=== PATIENT | female | born 1985 | race Caucasian/White ===

== ENCOUNTER → 2021-06-22 09:06 | Outpatient (BNVA) | payer SELFPAY | DX: Z76.89 Persons encountering health services in other specified circumstances (principal) ==

== ENCOUNTER 2024-04-18 17:07 | Emergency (ER) | payer OTHER, SELFPAY ==
--- NOTE | ~2024-04-18 | XR_ITS ---
EXAMINATION: XR TIBIA AND FIBULA, RIGHT CLINICAL INFORMATION: Concern for foreign body retention COMPARISON: None available. TECHNIQUE: AP and lateral views of the right tibia and fibula were obtained. FINDINGS: Alignment at the knee and ankle is anatomic. No acute fracture is seen. No definite radiopaque foreign body, with some dressing material noted along the lateral mid calf partially limiting evaluation. XR/XR tibia fibula RT 2V IMPRESSION: No definite radiopaque foreign body, with dressing material noted along the lateral mid calf.
[2024-04-18 17:25] VITALS: BP 149/86; PULSE 100; RESP 18; TEMP 36.1; O2SAT 98; BMI 27.8
--- NOTE | 2024-04-18 17:33 | ED_ITS ---
HPI - General Adult General Chief complaint: Wound/Laceration Stated complaint: R leg lac Time Seen by Provider: 04/18/24 19:13 Source: patient Mode of arrival: ambulatory Limitations: no limitations History of Present Illness ED Provider: Rachel Monteiro PA-C HPI narrative: 39-year-old female presents for evaluation of a laceration on her right lower extremity. She was renovating her bathroom and noticed her leg was bleeding. She is not exactly sure what she cut it on, possibly a porcelain toilet. She is unsure of her tetanus status. MD complaint: Right leg laceration Onset (ago): hour(s) Location: right and lower extremity Related Data Previous Rx's ?Medication ?Instructions ?Recorded cephalexin 500 mg capsule 500 mg PO Q6H 7 days #28 caps 04/18/24 Allergies Allergy/AdvReac Type Severity Reaction Status Date / Time No Known Allergies Allergy Verified 04/18/24 17:28 Review of Systems 2 Constitutional: Constitutional: Reports no additional constitutional complaints, Denies chills, Denies fever(s) and Denies night sweats Eyes: Eyes: Reports no additional eye complaints, Denies blurry vision, Denies change in vision, Denies diplopia, Denies eye discharge, Denies loss of vision and Denies eye pain ENT: Denies dizziness Cardiovascular: Cardiovascular: Reports no additional cardiovascular complaints, Denies chest pain, Denies lightheadedness, Denies Loss of Consciousness and Denies dyspnea Respiratory: Respiratory: Reports no additional respiratory complaints and Denies dyspnea Gastrointestinal: Gastrointestinal: Reports no additional gastrointestinal complaints, Denies abdominal pain, Denies melena, Denies hematochezia, Denies change in bowel habits and Denies change in stool character Genitourinary: Genitourinary: Denies hematuria, Denies urinary frequency, Denies dysuria, Denies urinary incontinence, Denies urinary hesitancy and Denies urinary urgency Musculoskeletal: Musculoskeletal: Reports no additional musculoskeletal complaints, Denies numbness and Denies tingling Integumentary/Breasts: Skin/Breast: Reports other (laceration on right calf) Neurologic: Denies dizziness, Denies loss of vision, Denies numbness and Denies tingling Psychiatric: Psychiatric: Reports no additional psychiatric complaints Endocrine: Endocrine: Reports no additional endocrine complaints Hematologic/Lymphatic: Hematologic/Lymphatic: Reports no additional hematologic/lymphatic complaints Allergic/Immunologic: Allergic/Immunologic: Reports no additional allergic/immunologic complaints [facility] Past Medical History Attestation statement: The following information was validated with the patient. Source: old records reviewed and nursing notes reviewed Social History Social History Advance Directives: No Advance Directives Information Provided: No Do you have a plan to hurt others: No Plan Physical Exam ED Vital Signs: Vital Signs - 24 hr 04/18/24 17:25 04/18/24 19:19 04/18/24 20:21 Temperature 97.0 F 97.8 F 97.8 F Pulse Rate 100 87 87 Respiratory Rate 18 18 18 Blood Pressure 149/86 H 138/86 138/86 Pulse Oximetry 98 98 98 Oxygen Delivery Method Room Air Room Air Room Air BMI result Body Mass Index 27.8 Const General: cooperative, no acute distress, alert and awake Nutritional Appearance: well nourished Orientation/consciousness: patient oriented x3 Limitations: no limitations HENMT Head: Yes normal to inspection and Yes atraumatic Ears: hearing grossly normal bilaterally and external ears normal General nose exam: Normal external nose present, no nasal discharge noted and no epistaxis Face and sinus: Yes normal facial exam, No abrasion and No laceration Mouth: Normal oral and palatal mucosa present, no drooling and no muffled voice Eyes General: appearance normal, both eyes and all related structures Periorbital: periorbital findings normal Eyelids: Yes eyelids normal Conjunctivae: conjunctivae normal Pupils: Equal, round and reactive pupils present EOM: EOMs intact bilaterally Neck Neck: Yes normal visual inspection, Yes full ROM and Yes no lymphadenopathy Chest Chest palpation & inspection: normal inspection of the chest Resp Effort & Inspection: normal respiratory effort and able to speak in complete sentences GI Inspection: Yes normal to inspection Neuro General: patient oriented x3 and moves all extremities Cranial nerves: Yes Equal, round and reactive pupils present Cognition (Neuro): normal cognition Motor exam (neuro): 5/5 motor strength present throughout Sensory Exam: Normal double simultaneous stimulation for sensation Coordination: [id number] test normal Extrem General: Yes full ROM and Yes capillary refill normal Right lower extremity: lower leg Details: laceration (Right calf, linear, 2.5 cm) Upper/lower leg/hip images: 2 1. 2.5cm laceration, no active bleeding Psych Appearance: grossly normal Mental Status: mental status grossly normal Affect: normal affect Attitude: cooperative Thought process: Normal thought process present Thought content: Normal thought content present Insight: Good insight present (Psych) Course Course Course Narrative: RME: RME done by ARMINDA Rueda. Patient presents for Right leg laceration caused by tile while re-doing the bathroom. Superficial laceration may need one stitch. no tenderness on palpation. Medications Administered Discontinued Medications Generic Name Dose Route Start Last Admin Trade Name Freq PRN Reason Stop Dose Admin Diphtheria/Tetanus/Acell Pertussis 0.5 ml 04/18/24 17:29 04/18/24 20:01 Diphth,Pertus(Acell),Tet Adult 0.5 Ml Syringe IM 04/18/24 17:30 0.5 ml .ONCE ONE Administration Lidocaine HCl 5 ml 04/18/24 19:21 04/18/24 20:01 Lidocaine Hcl 1 % Mpf 5 Ml Vial INFILTRATI 04/18/24 19:22 Not Given ONCE ONE Lidocaine HCl 5 ml 04/18/24 19:21 04/18/24 20:01 Lidocaine Hcl 1 % Mpf 5 Ml Vial INFILTRATI 04/18/24 19:22 Not Given ONCE ONE Lidocaine HCl 5 ml 04/18/24 19:28 04/18/24 20:01 Lidocaine Hcl 1 % Mpf 5 Ml Vial SUBCUT 04/18/24 19:29 5 ml ONCE ONE Administration Procedures Laceration Laceration 1: Site: lower extremity (RLE) Side (If applicable): right Size (cm): 2.5 Description: linear Depth: simple, single layer Local Anesthetic: lidocaine 1% Amount of anesthesia used (mL): 0.5 Pre-repair: irrigated extensively and deep structures intact Skin layer closed with: other (prolene) Size (cm): 6-0 Number of sutures: 3 Technique: simple, interrupted Medical Decision Making Medical Decision Making MDM Narrative: Patient is a 39 year old assigned female at with no reported medical history presenting to the emergency department today with a right lower leg laceration. Patient's physical exam was as noted in the physical exam portion of this note. Patient's right lower leg x-ray showed no acute process. I explained my physical exam findings as well as all test results to the patient. I answered all questions asked by the patient. Patient's laceration was repaired without incident, per procedure note. Patient's PMS was intact prior to and after sutures. I stressed the importance of the patient taking her medication as prescribed. I stressed the importance of the patient following up with her primary care provider. I stressed the importance of the patient returning to the emergency department immediately if her symptoms were to worsen or if she were to develop any dizziness, shortness of breath, difficulty breathing, chest pain, blurry vision, loss of vision, nausea, vomiting, abdominal pain, fever, chills, back pain, or any other complaints. Patient verbalized agreement and understanding with this treatment plan and discharge. Differential Diagnosis Differential Diagnoses: The differential diagnosis associated with the presentation includes Laceration Foreign body Abrasion Admission/Observation Consideration of admission/observation: Escalation of care including admission/observation considered Laceration Independent Interpretation I performed an independent interpretation of an: Plain X-Ray Interpretation: My interpretation is in agreement with the radiologist's impression of this imaging study. - EXAMINATION: XR TIBIA AND FIBULA, RIGHT CLINICAL INFORMATION: Concern for foreign body retention COMPARISON: None available. TECHNIQUE: AP and lateral views of the right tibia and fibula were obtained. FINDINGS: Alignment at the knee and ankle is anatomic. No acute fracture is seen. No definite radiopaque foreign body, with some dressing material noted along the lateral mid calf partially limiting evaluation. XR/XR tibia fibula RT 2V IMPRESSION: No definite radiopaque foreign body, with dressing material noted along the lateral mid calf. Dictated By: Melvin Blue MD Signed By: Electronically signed by Melvin Blue MD 04/18/242034 Radiology Impression Discussion of test interpretation with radiology: I have reviewed the radiologist's reading. Prescription Management I considered prescription management with: Antibiotic (patient prescribed a prophylactic antibiotic secondary to mechanism of injury ) Discharge Plan Discharge Clinical Impression: Laceration Patient Disposition: Home, Self-Care Instructions: Care For Your Stitches (DC) Additional Instructions: Have your sutures removed in 7-10 days. Do NOT soak the affected area. Follow up with your primary care provider. Return to the emergency department immediately if your symptoms worsen or if you develop any dizziness, shortness of breath, difficulty breathing, chest pain, blurry vision, loss of vision, nausea, vomiting, abdominal pain, fever, chills, back pain, or any other complaints. Prescriptions: New cephalexin 500 mg capsule 500 mg PO Q6H 7 Days Qty: 28 0RF Referrals: [facility] Family Medicine [Provider Group] (Call to establish and follow up with a primary care provider. If you already have a primary care provider, please follow up with them.) [facility] [Provider Group] [facility] [Provider Group] Stand Alone Forms: Work/School Release Interventions: ED Discharge Assessment Last Done: 04/18/24 20:21 Discharge Date/Time: 04/18/24 20:22 Print Language: Sammarinese
[2024-04-18 19:19] VITALS: BP 138/86; PULSE 87; RESP 18; TEMP 36.6; O2SAT 98
[2024-04-18] MEDS: Lidocaine HCl 1 % MPF 5 ML VIAL SUBCUT (20:01)
[2024-04-18] MEDS: Diphth,Pertus(ACell),Tet Adult 0.5 ML SYRINGE IM (20:01)
[2024-04-18 20:21] VITALS: BP 138/86; PULSE 87; RESP 18; TEMP 36.6; O2SAT 98
== END 2024-04-18 20:22 | disposition home or self-care (01) ==
LOC: HO.ED 20:18
PROVIDERS: Emergency Provider Internal Medicine
DX: S81.811A Laceration without foreign body, right lower leg, initial encounter (principal); W45.8XXA Other foreign body or object entering through skin, initial encounter; Y93.9 Activity, unspecified; Y92.9 Unspecified place or not applicable; Y99.9 Unspecified external cause status
CPT/HCPCS: 12001; 73590; 90471; 90715; 99282; 99284